=== PATIENT | male | born 1975 | race Caucasian/White ===

== ENCOUNTER 2019-03-11 22:35 | Emergency (ER) | payer OTHER ==
[2019-03-11] MEDS: METHYLPREDNISOLONE 125 MG INJ IM (23:33)
[2019-03-11] MEDS: KETOROLAC 60 MG INJ IM (23:33)
== END 2019-03-12 | disposition home or self-care (01) ==
LOC: FTE 22:35
DX: M54.2 Cervicalgia (principal); F17.210 Nicotine dependence, cigarettes, uncomplicated
CPT/HCPCS: 96372; 99284-25